=== PATIENT | male | born 1975 | race Caucasian/White ===

== ENCOUNTER → 2017-07-30 | Day surgery (SDC) | payer OTHER ==
[~2017-07-30] MED LIST: CLINDAMYCIN 900MG PREMIX 50 ML IV ONE; DEXAMETHASONE SOD PHOS 20 MG/5 ML VIAL. ONE; EPINEPHrine VIAL 30 MG/30 ML VIAL ONE; FAMOTIDINE 20 MG/2 ML VIAL ONE; FLUO40CA2 PO; GLYCOPYRROLATE 1 MG/5 ML VIAL. ONE; HYDROmorphone 2 MG/ML VIAL IV PRN; IV RINGERS,LACTATED 1000ML 1,000 ML IV SCH; LIDOCAINE 1% PF 2 ML VIAL. ID PRN; LIDOCAINE 2% PF Vial for OR 5 ML VIAL. ONE; MIDAZOLAM HCL/PF 2 MG/2 ML VIAL. ONE; MORPHINE SULFATE 10 MG/ML VIAL. ONE; MORPHINE SULFATE 4 MG/ML DISP.SYRIN. IV PRN; NAPR500T PO; NEOSTIGMINE 10 MG/10 ML VIAL. ONE; ONDANSETRON PF 4 MG/2 ML VIAL. IV PRN; ONDANSETRON PF 4 MG/2 ML VIAL. ONE; OXYC-327 PO; PROPOFOL 20 ML IV ONE; ROCURONIUM 50 MG/5 ML VIAL. ONE; ROPIVacaine 0.2% PF 10 ML VIAL. ONE; SUMA50TA3 PO; fentaNYL PF VIAL 100 MCG/2 ML VIAL IV PRN; fentaNYL PF VIAL 100 MCG/2 ML VIAL ONE; oxyCODONE/APAP 7.5/325 1 TAB TABLET PO ONE
[2017-07-30] MEDS: fentaNYL PF VIAL 100 MCG/2 ML VIAL IV PRN ×2 (13:50→14:09)
--- NOTE | 2017-07-30 13:54 | DISCH ---
DISCHARGE INSTRUCTIONS Condition on Discharge Condition on Discharge: Stable Activity After Discharge Activity Instructions for Disc: Other, see below Other activity instructions: slow advance of walking and activities with crutch support, start PT nextwk Weight Bearing Status after Di: Partial weight bearing, Other, see below (with crutches for support) Diet after Discharge Diet after Discharge: Regular Wound Incision Care Wound/Incision Care: Ice to area for comfort, Change dressing Other wound/incision instructi: remove dressing in 2 days may then shower Community/Resources/Services Services at Discharge: PT EVALUATE & TREAT (At [facility] for motion strength, ambulation) Contacting the after DC Call your doctor for: Concerns you may have Follow-Up Follow up with: Kristy 10 days MAIKEL HAYDEN MD Jul 30, 2017 13:54
[2017-07-30] MEDS: PROCHLORPERAZINE 10 MG/2 ML VIAL. IV PRN ×2 (14:09→14:35)
--- NOTE | 2017-07-30 14:09 | PDOC4 ---
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 I gone over with him the possibility of arthroscopic treatment of his hip possible labral repair if indicated the usual removal of the impinging bone on the anterior superior aspect of femoral neck possibility of labral debridement if the tear is not repairable or is more degenerative in nature possibility of continued pain nerve or blood vessel damage medical or other anesthetic complications infection among others all his questions were answered he wants proceed with surgical evaluation and treatment. Operative text: Patient was identified procedure verified patient placed in the supine position on the Victoria fracture table. After adequate amounts of general endotracheal anesthesia were administered traction boots were placed on both legs in a large femoral post was placed all bony prominences were well-padded and no traction was initially placed left hip was prepped and draped in standard sterile fashion. After timeout was performed patient procedure identified and verified traction was then placed on the left hip a long spinal needle was placed in the location of the anterolateral portal under fluoroscopic guidance and the joint entered without difficulty tear was admitted into the joint to allow further distraction it was further insufflated with normal saline solution and a dilator and arthroscopic portal were placed standard anterolaterally an anterior portal was then placed as well as a posterior lateral portal all under direct arthroscopic visualization hip capsular release was carried out for better mobilization and the superior labrum was noted to have significant degenerative change really not amenable to repair and there was not a capsular separation at the joint cartilage. The superior and anterolateral femoral neck was cleared of capsular tissue to identify the cam lesion the labrum was debrided back to stable tissue traction was taken off of the hip and it was taken through range of motion to better identify the cam lesion which was removed with an arthroscopic bur with a femoroplasty conducted under fluoroscopic guidance to avoid any excess bony resection and the hip was taken through full range of motion to verify elimination of the cam impingement. Overall traction time was less than one hour joint was drained of arthroscopic fluid portals were closed with nylon suture he was returned to recovery room in stable condition having tolerated procedure well MAIKEL HAYDEN MD Jul 30, 2017 14:09
[2017-07-30 15:26] VITALS: BP 115/68
--- NOTE | 2017-07-30 19:02 | HP ---
ADMIT DATE: 07/30/2017 PREOPERATIVE HISTORY AND PHYSICAL CHIEF COMPLAINT: Left hip pain. HISTORY OF PRESENT ILLNESS: The patient is a 41-year-old male who has a long history of left hip pain. He states that he is not sure of any specific injury, but he said that he has a lot of pain in his groin and hip area with any rotation or pressure down on the hip and is mainly sharp, stabbing in nature and it is worse when he rotates the hip ____ in extremes of rotation. PAST MEDICAL HISTORY: Significant for neck problems and degenerative change. SURGICAL HISTORY: Significant for left shoulder surgery. MEDICATIONS: Include naproxen and fluoxetine. ALLERGIES: HE HAS A PENICILLIN ALLERGY. REVIEW OF SYSTEMS: Denies any chest pain, shortness of breath, focal weakness, numbness, tingling, weight loss or gain, constitutional symptoms, fever or chills. PHYSICAL EXAMINATION: HEENT: Atraumatic and normocephalic. HEART: Regular rate and rhythm. LUNGS: Clear to auscultation bilaterally. ABDOMEN: Benign. EXTREMITIES: Examination of left hip reveals pain on any extremes of internal and external rotation, particularly in flexion of the left hip. He has no trochanteric bursitis. Negative straight leg raise bilaterally. Normal leg length, alignment and stability of bilateral hip, knees and ankle. IMAGING: MRI was suspicious for a tear of the acetabular labrum, and he appeared to have signs consistent with a Cam impingement lesion as well. TREATMENT PLAN: I had gone over with him additional nonoperative treatment options including the possibility of injection in the hip. At this point, he is more interested in definitive treatment. I did go over with him the possibility of hip arthroscopy and the possibility of labral evaluation and repair, removal of any impinging bone, the less favorable results if there are more degenerative changes present in the labrum or hip. We went over the possibility of continued pain, nerve or blood vessel damage, medical or other anesthetic complications among others. All his questions were answered. He wants to proceed with surgical evaluation and treatment today. MAIKEL HAYDEN MD DR: JACINTO/agnes JOB#: [id number] / [id number]
== END | disposition home or self-care (01) ==
LOC: SURG 08:55
PROVIDERS: ATTEND Orthopaedic Surgery
DX: M24.152 Other articular cartilage disorders, left hip (principal); M25.852 Other specified joint disorders, left hip; Z88.0 Allergy status to penicillin; Z79.899 Other long term (current) drug therapy
CPT/HCPCS: 29862; 29914; 76000; A4215; J0171; J0780; J1100; J2250; J2270; J2405; J2704; J2710; J3010; J3490; S0028; J2795; J2001